=== PATIENT | female | born 1975 | race Caucasian/White ===

== ENCOUNTER → 2017-01-12 | Outpatient (CLI) | payer MEDICAID ==
[~2017-01-12] MED LIST: BUTA1CAP30 PO; CALCIUM PO; ESCI10TA10 PO; FERR325T20 PO; FLUO60TA PO; GABA300C PO; GABA600T PO; HYDR-3307 PO; HYDR1TAB16 PO; HYDR50TA13 PO; IBUP-1222; IBUP-1222 PO; METH500T7 PO; MULTIVITAMIN PO; ONDA4TAB7 PO; ONDA8TAB9 PO; PANT20TA3 PO; PROP10TA PO; TOPI50TA35 PO; TRAM50TA2 PO; VENL37.52 PO
[2017-01-12 13:30] LABS: ABG COLLECTION SITE RIGHT RADIAL; COLLATERAL CIRCULATION TESTING NORMAL
== END | disposition home or self-care (01) ==
LOC: MERGE 01-08 13:00 → CARD 12:31
PROVIDERS: ATTEND Nurse Practitioner
DX: R06.02 Shortness of breath (principal)
CPT/HCPCS: 36600; 82803

== ENCOUNTER 2017-05-06 20:52 | Emergency (ER) | payer MEDICAID ==
[~2017-05-06] VITALS: Ht 167.6 cm; Wt 131.8 kg
[~2017-05-06 20:52] MED LIST changes: +FERR325T18 PO; -FERR325T20 PO
[2017-05-06 20:54] VITALS: BP 129/89
[2017-05-06] MEDS ORDERED: KETOROLAC 30 MG/1 ML ONE (21:39)
[2017-05-06] MEDS ORDERED: DIAZEPAM 5 MG TABLET ONE (21:39)
[2017-05-06] MEDS ORDERED: DIAZEPAM 5 MG TABLET PO ONE (22:00)
[2017-05-06] MEDS ORDERED: KETOROLAC 30 MG/1 ML IM ONE (22:00)
[2017-05-06] MEDS ORDERED: ONDANSETRON ODT 4 MG ONE (22:23)
[2017-05-06] MEDS ORDERED: ONDANSETRON ODT 4 MG PO ONE (23:00)
[2017-05-07] MEDS ORDERED: OMEP-110 PO (11:38)
[2017-05-07] MEDS ORDERED: GABA600T2 PO (11:38)
[2017-05-07] MEDS ORDERED: MONT10TA9 PO (11:38)
[2017-05-07] MEDS ORDERED: ALPR1TAB6 PO (11:38)
[2017-05-07] MEDS ORDERED: MELO7.5T31 PO (11:38)
[2017-05-07] MEDS ORDERED: CYCL5TAB PO (11:38)
[2017-05-07] MEDS ORDERED: ONDA4TAB10 PO (11:38)
[2017-05-07] MEDS ORDERED: BUSP15TA PO (11:38)
[2017-05-07] MEDS ORDERED: FERR324T5 PO (11:38)
[2017-05-07] MEDS ORDERED: ACET325T14 PO (11:38)
[2017-05-07] MEDS ORDERED: SERT100T PO (11:38)
== END 2017-05-06 22:47 | disposition home or self-care (01) ==
LOC: ED 22:05
DX: S39.012A Strain of muscle, fascia and tendon of lower back, initial encounter (principal); G89.29 Other chronic pain; M51.16 Intervertebral disc disorders with radiculopathy, lumbar region; G43.909 Migraine, unspecified, not intractable, without status migrainosus; X58.XXXA Exposure to other specified factors, initial encounter; Y93.89 Activity, other specified; Y92.89 Other specified places as the place of occurrence of the external cause; Y99.8 Other external cause status
CPT/HCPCS: 72110; 96372; 99284; J1885; Q0162

== ENCOUNTER 2017-05-07 11:25 | Emergency (ER) | payer MEDICAID ==
[~2017-05-07] VITALS: Ht 167.6 cm; Wt 128.0 kg
[2017-05-07] MEDS ORDERED: ONDA4TAB10 PO (11:38)
[2017-05-07] MEDS ORDERED: MELO7.5T31 PO (11:38)
[2017-05-07] MEDS ORDERED: ACET325T14 PO (11:38)
[2017-05-07] MEDS ORDERED: BUSP15TA PO (11:38)
[2017-05-07] MEDS ORDERED: SERT100T PO (11:38)
[2017-05-07] MEDS ORDERED: OMEP-110 PO (11:38)
[2017-05-07] MEDS ORDERED: MONT10TA9 PO (11:38)
[2017-05-07] MEDS ORDERED: GABA600T2 PO (11:38)
[2017-05-07] MEDS ORDERED: ALPR1TAB6 PO (11:38)
[2017-05-07] MEDS ORDERED: FERR324T5 PO (11:38)
[2017-05-07] MEDS ORDERED: CYCL5TAB PO (11:38)
[2017-05-07] MEDS ORDERED: KETOROLAC 30 MG/1 ML ONE (11:59)
[2017-05-07] MEDS ORDERED: KETOROLAC 60 MG/2 ML IM ONE (12:00)
[2017-05-07] MEDS ORDERED: KETOROLAC 30 MG/1 ML IVPush ONE (12:00)
[2017-05-07 12:57] VITALS: BP 144/89
== END 2017-05-07 12:59 | disposition home or self-care (01) ==
LOC: ED 12:24
DX: S16.1XXA Strain of muscle, fascia and tendon at neck level, initial encounter (principal); G89.11 Acute pain due to trauma; M54.5 Low back pain; M54.6 Pain in thoracic spine; Z90.49 Acquired absence of other specified parts of digestive tract; V43.52XA Car driver injured in collision with other type car in traffic accident, initial encounter; Y93.89 Activity, other specified; Y99.8 Other external cause status; Y92.410 Unspecified street and highway as the place of occurrence of the external cause
CPT/HCPCS: 72125; 72131; 96374; 99284; J1885

== ENCOUNTER → 2017-11-13 | Outpatient (CLI) | payer MEDICAID ==
[~2017-11-13] MED LIST changes: +ACET325T14 PO; +ALPR1TAB6 PO; +BUSP15TA PO; +CYCL5TAB PO; +FERR324T5 PO; +GABA600T2 PO; +MELO7.5T31 PO; +MONT10TA9 PO; +OMEP-110 PO; +ONDA4TAB10 PO; +SERT100T PO
== END ==
LOC: CFH 08:22
PROVIDERS: ATTEND Registered Nurse
DX: J96.11 Chronic respiratory failure with hypoxia (principal); R05 Cough; R06.00 Dyspnea, unspecified
CPT/HCPCS: 71250

== ENCOUNTER → 2018-01-29 | Outpatient (CLI) | payer MEDICAID | END | disposition home or self-care (01) | LOC: CVU 07:52 | PROVIDERS: ATTEND Internal Medicine Critical Care Medicine | DX: I08.2 Rheumatic disorders of both aortic and tricuspid valves (principal); R06.02 Shortness of breath; Z87.891 Personal history of nicotine dependence | CPT/HCPCS: 93306 ==

== ENCOUNTER 2018-06-21 07:21 | Day surgery (SDC) | payer MEDICAID ==
[2018-06-18 10:34] LABS: BASOPHILS # (AUTO) 0.03 x10^3/uL (0-0.1); BASOPHILS % (AUTO) 0 % (0-1); EOSINOPHILS # (AUTO) 0.14 x10^3/uL (0-0.4); EOSINOPHILS % (AUTO) 2 % (1-7); LYMPHOCYTES # (AUTO) 2.13 x10^3/uL (1-3.4); LYMPHOCYTES % (AUTO) 35 % (22-44); MD NO; MEAN CORPUSCULAR HEMOGLOBIN 26.6 pg (27.0-34.8); MEAN CORPUSCULAR HGB CONC 32.9 g/dL (32.4-35.8); MEAN CORPUSCULAR VOLUME 80.8 fL (80-100); MEAN PLATELET VOLUME 8.1 fL (7.4-10.4); MONOCYTES # (AUTO) 0.43 x10^3/uL (0.2-0.8); MONOCYTES % (AUTO) 7 % (2-9); NEUTROPHILS # (AUTO) 3.38 x10^3/uL (1.8-6.8); NEUTROPHILS % (AUTO) 55 % (42-75); PLATELET COUNT 252 x10^3/uL (130-400); RED BLOOD COUNT 4.66 x10^6/uL (3.82-5.3); RED CELL DISTRIBUTION WIDTH 16.1 % (9.6-15.2)
[~2018-06-21] VITALS: Ht 167.6 cm; Wt 136.0 kg
[~2018-06-21 07:21] MED LIST changes: +ACET-1600 PO; +BUPIVACAINE/PF 0.25% ONE; +BUPROPION PO; +BUSP10TA PO; +EPINEPHRINE 1 MG/ML, 1ML ONE; +GABA300C10 PO; -GABA600T2 PO; +GABA600T7 PO; +MELO15TA24 PO; +NEOMY/POLYMYXIN B GU IRR. 1 ML ONE; -PROP10TA PO; +PROP10TA16 PO; +breo ellipta INH; +cbd gummy PO
[2018-06-21] MEDS ORDERED: LACTATED RINGERS 1,000 ML IV SCH (07:39)
[2018-06-21 08:04] VITALS: BP 125/85
[2018-06-21] MEDS ORDERED: FENTANYL PF 100 MCG/2ML ONE ×3 (08:06→11:08)
[2018-06-21] MEDS ORDERED: MIDAZOLAM 1 MG/ML, 2ML ONE (08:06)
[2018-06-21] MEDS ORDERED: LIDOCAINE-MPF 1%, 2ML INFIL ONE (08:30)
[2018-06-21] MEDS ORDERED: OXYcodone 5 MG/5 ML ORAL.SOL UDC PO PRN (09:00)
[2018-06-21] MEDS ORDERED: hydrALAzine 20 MG/ML, 1ML IV PRN (09:00)
[2018-06-21] MEDS ORDERED: LABETALOL 5MG/ML, 20ML IV PRN (09:00)
[2018-06-21] MEDS ORDERED: HYDROmorphone 2 MG/ML, 1ML IVPush PRN ×2 (09:00→13:00)
[2018-06-21] MEDS ORDERED: LORazepam 2 MG/ML, 1ML IVPush PRN (09:00)
[2018-06-21] MEDS ORDERED: MEPERIDINE/PF 25MG/0.5ML IVPush PRN (09:00)
[2018-06-21] MEDS ORDERED: METOCLOPRAMIDE 5 MG/ML, 2ML IV PRN (09:00)
[2018-06-21] MEDS ORDERED: ACETAMINOPHEN 325 MG TABLET PO PRN (09:00)
[2018-06-21] MEDS ORDERED: METOCLOPRAMIDE 5 MG/ML, 2ML ONE (10:27)
[2018-06-21] MEDS: FENTANYL PF 100 MCG/2ML IV PRN ×3 (10:31→11:09)
[2018-06-21] MEDS ORDERED: ACETAMINOPHEN 650 MG/20.3 ML UDC ONE (11:01)
[2018-06-21] MEDS ORDERED: OXYcodone 5 MG/5 ML ORAL.SOL UDC ONE (11:01)
[2018-06-21] MEDS ORDERED: ONDANSETRON 2MG/ML, 2ML ONE (12:51)
[2018-06-21] MEDS ORDERED: ONDANSETRON 2MG/ML, 2ML IVPush PRN (13:00)
[2018-06-21] MEDS ORDERED: HYDROcodone/APAP 5/325 TABLET PO PRN (13:00)
== END 2018-06-21 14:50 | disposition home or self-care (01) ==
LOC: OUT 07:21
PROVIDERS: ATTEND Obstetrics & Gynecology Female Pelvic Medicine and Reconstructive Surgery
DX: N81.89 Other female genital prolapse (principal); N39.46 Mixed incontinence; N32.81 Overactive bladder; G43.909 Migraine, unspecified, not intractable, without status migrainosus; D64.9 Anemia, unspecified; K21.9 Gastro-esophageal reflux disease without esophagitis; F41.9 Anxiety disorder, unspecified; F32.9 Major depressive disorder, single episode, unspecified; J44.9 Chronic obstructive pulmonary disease, unspecified; E66.01 Morbid (severe) obesity due to excess calories; Z90.710 Acquired absence of both cervix and uterus; Z90.49 Acquired absence of other specified parts of digestive tract; Z98.890 Other specified postprocedural states; Z68.42 Body mass index [BMI] 45.0-49.9, adult; Z99.81 Dependence on supplemental oxygen
CPT/HCPCS: 36415; 57265; 57282; 57288; 85025; 93005; C1771; J0171; J1170; J2250; J2405; J2765; J3010; J3490; J7120

== ENCOUNTER 2018-07-12 08:55 | Emergency (ER) | payer MEDICAID ==
[~2018-07-12] VITALS: Ht 167.6 cm; Wt 141.0 kg
[~2018-07-12 08:55] MED LIST changes: -BUPIVACAINE/PF 0.25% ONE; -EPINEPHRINE 1 MG/ML, 1ML ONE; -NEOMY/POLYMYXIN B GU IRR. 1 ML ONE
[2018-07-12 09:25] LABS: BASOPHILS # (AUTO) 0.04 x10^3/uL (0-0.1); BASOPHILS % (AUTO) 1 % (0-1); EOSINOPHILS # (AUTO) 0.15 x10^3/uL (0-0.4); EOSINOPHILS % (AUTO) 3 % (1-7); LYMPHOCYTES # (AUTO) 1.13 x10^3/uL (1-3.4); LYMPHOCYTES % (AUTO) 20 % (22-44); MD NO; MEAN CORPUSCULAR HEMOGLOBIN 25.8 pg (27.0-34.8); MEAN CORPUSCULAR VOLUME 80.4 fL (80-100); MEAN PLATELET VOLUME 7.6 fL (7.4-10.4); MONOCYTES # (AUTO) 0.45 x10^3/uL (0.2-0.8); MONOCYTES % (AUTO) 8 % (2-9); NEUTROPHILS # (AUTO) 3.89 x10^3/uL (1.8-6.8); NEUTROPHILS % (AUTO) 69 % (42-75); PLATELET COUNT 258 x10^3/uL (130-400); RED BLOOD COUNT 4.68 x10^6/uL (3.82-5.3); RED CELL DISTRIBUTION WIDTH 16.7 % (9.6-15.2)
[2018-07-12 09:42] LABS: ALBUMIN 3.6 g/dL (3.4-5.0); ANION GAP 5 mmol/L (5-15); CALCIUM 8.6 mg/dL (8.5-10.1); CHLORIDE 105 mmol/L (98-107); CREATININE 0.89 mg/dL (0.55-1.02)
[2018-07-12 09:45] LABS: TROPONIN I < 0.015 ng/mL (0.000-0.045)
--- NOTE | 2018-07-12 09:54 | NUR ---
PT MOVED TO ROOM
[2018-07-12 10:42] VITALS: BP 114/78
--- NOTE | 2018-07-12 10:47 | NUR ---
Patient given discharge instructions and they have confirmed that they understand the instructions. Patient ambulatory with steady gait.
== END 2018-07-12 11:06 | disposition home or self-care (01) ==
LOC: ED 10:58
DX: J04.0 Acute laryngitis (principal); B97.89 Other viral agents as the cause of diseases classified elsewhere; G43.909 Migraine, unspecified, not intractable, without status migrainosus
CPT/HCPCS: 36415; 71046; 80048; 82040; 84484; 85025; 93005; 99284; J7512